=== PATIENT | male | born 1970 | race Caucasian/White ===

== ENCOUNTER 2016-12-03 08:02 | Day surgery (SDC) | payer OTHER ==
[2016-11-19 11:36] LABS: HEMATOCRIT 49.3 % (37.9-51.0); HGB HCT DIFFERENCE 1.7; MEAN CORPUSCULAR HEMOGLOBIN 32.6 pg (27.0-33.4); MEAN CORPUSCULAR HGB CONC 34.6 g/dL (32.0-36.0); MEAN CORPUSCULAR VOLUME 94 fl (80-97); RED BLOOD COUNT 5.24 10^6/uL (4.35-5.55); RED CELL DISTRIBUTION WIDTH 13.5 % (11.5-14.0); WHITE BLOOD COUNT 10.7 10^3/uL (4.0-10.5)
[2016-11-19 11:37] LABS: APPEARANCE,URINE SLIGHTLY-CLOUDY; BILIRUBIN,URINE NEGATIVE (NEGATIVE); GLUCOSE, URINE NEGATIVE (NEGATIVE); KETONES,URINE NEGATIVE (NEGATIVE); LEUKOCYTE ESTERASE,URINE NEGATIVE (NEGATIVE); NITRITE,URINE NEGATIVE (NEGATIVE); PROTEIN,URINE NEGATIVE (NEGATIVE); URINE SPECIFIC GRAVITY 1.019; UROBILINOGEN,URINE NEGATIVE mg/dL (<2.0)
[2016-11-19 11:58] LABS: ANION GAP 12 (5-19); BLOOD UREA NITROGEN 9 mg/dL (7-20); CALCIUM 10.1 mg/dL (8.4-10.2); CARBON DIOXIDE 25 mmol/L (22-30); CHLORIDE 105 mmol/L (98-107); CREATININE RESULT 0.81 mg/dL (0.52-1.25); GLUCOSE 141 mg/dL (75-110); POTASSIUM 4.2 mmol/L (3.6-5.0); SODIUM 142.3 mmol/L (137-145)
--- NOTE | 2016-11-19 14:42 | EKG REPORT ---
SEVERITY:- ABNORMAL ECG - SINUS RHYTHM LEFT POSTERIOR FASCICULAR BLOCK : Confirmed by: Rajesh King 19-Nov-2016 14:41:11
[~2016-12-03 08:02] MED LIST: CEFAZOLIN 1 GM/D5W RTU 1 GM/50 ML RTUPB IV PRN; CEFAZOLIN 2 GM/D5W RTU 2 GM/50 ML RTUPB IV PRN; CLINDAMYCIN 600 MG/D5W RTU 600 MG/50 ML RTUPB IV PRN; LACTATED RINGERS 1000 ML IV PRN
[2016-12-03] MEDS ORDERED: FENTANYL CITRATE INJ/PF 250 MCG/5 ML AMPULE ONE ×2 (10:10→10:32)
[2016-12-03] MEDS ORDERED: EPHEDRINE SULFATE INJ 50 MG/1 ML AMPULE ONE (10:11)
[2016-12-03] MEDS ORDERED: HYDROMORPHONE HCL INJ/PF 2 MG/ML AMPULE ONE ×2 (10:11→10:32)
[2016-12-03] MEDS ORDERED: MIDAZOLAM 2 MG/2 ML INJ ONE (10:11)
[2016-12-03] MEDS ORDERED: PROPOFOL INJ 200 MG/20 ML VIAL IV ONE (10:11)
[2016-12-03] MEDS ORDERED: ACETAMINOPHEN 100 ML IV ONE (10:11)
[2016-12-03] MEDS ORDERED: ALBUTEROL SULFATE 0.083% NEB 2.5 MG/3 ML AMPUL NEB ONE (10:18)
[2016-12-03] MEDS ORDERED: MORPHINE SULFATE 10 MG/ML INJ IV PRN (11:05)
[2016-12-03] MEDS ORDERED: FENTANYL CITRATE INJ/PF 100 MCG/2 ML AMPUL IV PRN ×3 (11:05)
[2016-12-03] MEDS ORDERED: MEPERIDINE HCL/PF INJ 25 MG/1 ML DISP.SYRIN IV PRN (11:05)
[2016-12-03] MEDS ORDERED: OXYCODONE-ACETAMINOPHEN 5-325 MG TABLET PO PRN ×2 (11:05)
[2016-12-03] MEDS ORDERED: DIPHENHYDRAMINE HCL 50 MG/ML VIAL IV PRN (11:05)
[2016-12-03] MEDS ORDERED: PROMETHAZINE HCL INJ 25 MG/1 ML VIAL IV PRN ×2 (11:05)
[2016-12-03] MEDS ORDERED: BUPIVACAINE HCL 0.25% /EPINEPHRINE INJ/PF 30 ML SDV ONE (11:52)
--- NOTE | 2016-12-03 12:10 | Operative Report ---
Operative Report DATE OF SURGERY: 12/03/16 PREOPERATIVE DIAGNOSIS: Right talar avascular necrosis OPERATION: Right pantalar arthrodesis SURGEON: KIM CRAVEN ANESTHESIA: GA TISSUE REMOVED OR ALTERED: Bone to pathology COMPLICATIONS: Drill fracture ESTIMATED BLOOD LOSS: 50 mL PROCEDURE: The patient supine after table the right lower extremity is prepped and draped in a sterile fashion. The limb was elevated for exsanguination tourniquet inflated to 350 torr. A longitudinal incision was made over the distal fibula. The distal fibula was exposed. It's transected using an oblique osteotomy from proximal distal. The distal fibular fragment is then excised revealing the underlying tibiotalar joint. There resection was planned of both proximal talus and the distal tibia. The plan is for neutral varus valgus angle, neutral rotation, and 5 of plantar flexion. With this in mind, the proximal surface of the talus is resected. The distal aspect of the tibia is resected. The alignment was assessed and felt to be reasonable. Subsequent pin is then placed from the plantar aspect of the foot up through the talus and into the distal tibia. A combined reamers used to increase the size of this. Access hole. Flexible reamers were then used to ream the nail tract to 10.5 mm. Subsequently a [employer] 10 mm titanium 150 mm ankle arthrodesis nail is advanced retrograde up into the tibia. A screw was placed across the talus. 2 screws were then placed more proximally in the tibial diaphysis. The tibiotalar space was then packed with bone graft obtained from the resected specimens as well as Vitoss bone substitute. The compression screws then activated from below to compress the tibiotalar joint. The next stage is to place a posterior calcaneal screw through the nail. In attempting to do this. The drill fractures and a fracture portion was left in the calcaneus. My clinical impression is that to remove this broken drill would cause much more distraction and leaving it in its current position. At this point the tourniquet was deflated. Hemostasis obtained with electrocautery. The wound is irrigated with bulb lavage. It's closed using interrupted Vicryl followed by kelly. A sterile compressive dressing and posterior plaster splint were applied and the patient's returned to recovery room in satisfactory condition.
[2016-12-03] MEDS ORDERED: ONDANSETRON HCL INJ/PF 4 MG/2 ML SDV IV PRN (12:17)
[2016-12-03] MEDS ORDERED: OXYCODONE HCL IR 5 MG TABLET PO PRN (12:17)
[2016-12-03] MEDS: FENTANYL CITRATE INJ/PF 100 MCG/2 ML AMPUL ONE ×2 (12:28→12:37)
[2016-12-03] MEDS ORDERED: GLYCOPYRROLATE INJ 0.4 MG/2 ML VIAL ONE (13:10)
[2016-12-03] MEDS ORDERED: DEXAMETHASONE SOD PHOSPHATE INJ 4 MG/1 ML VIAL ONE (13:10)
[2016-12-03] MEDS ORDERED: SUCCINYLCHOLINE CHLORIDE INJ 200 MG/10 ML VIAL ONE (13:10)
[2016-12-03] MEDS ORDERED: ONDANSETRON HCL INJ/PF 4 MG/2 ML SDV ONE (13:10)
[2016-12-03 14:22] VITALS: BP 160/98
== END 2016-12-03 14:10 | disposition home or self-care (01) ==
LOC: OROUT 08:02
PROVIDERS: ATTEND Orthopaedic Surgery
PROC: 0SGF04Z Fusion of Right Ankle Joint with Internal Fixation Device, Open Approach (ICD-10-PCS; 2016-12-03)
PROC: 0SGF07Z Fusion of Right Ankle Joint with Autologous Tissue Substitute, Open Approach (ICD-10-PCS; principal; 2016-12-03 10:00)
DX: M87.074 Idiopathic aseptic necrosis of right foot (principal); J44.9 Chronic obstructive pulmonary disease, unspecified; F17.210 Nicotine dependence, cigarettes, uncomplicated; Z88.0 Allergy status to penicillin; M19.90 Unspecified osteoarthritis, unspecified site; I10 Essential (primary) hypertension; E78.00 Pure hypercholesterolemia, unspecified; Z79.899 Other long term (current) drug therapy; Z79.51 Long term (current) use of inhaled steroids; F31.9 Bipolar disorder, unspecified
CPT/HCPCS: 93005; 36415; 85027; 80048; 81001; 73600; 71020; 93010; 28705; J2250; J3490; J1100; J3010 ×2; J1170; J0330; J2405; J2704; J0131; 01480

== ENCOUNTER 2017-01-22 17:38 | Emergency (ER) | payer OTHER ==
--- NOTE | 2017-01-22 20:23 | ER Document Report ---
ED Medical Screen (RME) - General Chief Complaint: Ankle Pain Stated Complaint: ANKLE PAIN Time Seen by Provider: 01/22/17 20:17 Notes: Patient had a fusion of his right ankle by Dr. Tang on December 03. He had a cast on postop that was removed by Dr. Tang in the follow-up visit at 2 weeks postop. That is the only time he says that he has seen and been able to talk with Dr. Tang. He says he has an appointment to see him on January [address] Tang has declined to change any of the treatment plan and says that the ankle is not infected and does not need anything else done for it until he sees him on January 28. Patient says he has only had conversations with Dr. Tang's nurse over the past 5 weeks.. Patient is not aware of any fever, but is having hot flashes. He says that he is having yellow drainage out of the incision over the lateral aspect of the ankle. He also says there is a drillbit coming out of his lower mid right lower leg. And, he is unable to bear weight on that ankle at this time because of continuing pain. He has asked Dr. Fuentes only for a referral for a second opinion and was given in order to get a second opinion, but the patient has not been able to do that yet. He says that he went to the doctor at the [facility] today and was told that he needed to be seen because of all the problems and concerns that he has with the ankle. Patient seems very angry. Says he is under care for posttraumatic stress disorder, depression, homicidal ideations, and suicidal ideation TRAVEL OUTSIDE OF THE [place] IN LAST 30 DAYS: No - Related Data Allergies/Adverse Reactions: shellfish derived Allergy (Verified 01/22/17 17:44) Anaphylaxis ALL CILLINS Allergy (Uncoded 01/22/17 17:44) Anaphylaxis BEE STINGS Allergy (Uncoded 01/22/17 17:44) Anaphylaxis Past Medical History - Past Medical History Cardiac Medical History: Reports: Hx Hypertension Denies: Hx Coronary Artery Disease, Hx Heart Attack Pulmonary Medical History: Reports: Hx Asthma, Hx Bronchitis, Hx COPD, Hx Pneumonia Neurological Medical History: Denies: Hx Cerebrovascular Accident, Hx Seizures Renal/ Medical History: Denies: Hx Peritoneal Dialysis Musculoskeltal Medical History: Reports Hx Arthritis - Immunizations Hx Diphtheria, Pertussis, Tetanus Vaccination: - UNKNOWN Physical Exam - Vital signs Vitals: Temp Pulse Resp BP Pulse Ox 97.8 F 94 18 112/93 H 97 01/22/17 17:44 01/22/17 17:44 01/22/17 17:44 01/22/17 17:44 01/22/17 17:44 Course - Vital Signs Vital signs: Temp Pulse Resp BP Pulse Ox 97.8 F 94 18 112/93 H 97 01/22/17 17:44 01/22/17 17:44 01/22/17 17:44 01/22/17 17:44 01/22/17 17:44
[2017-01-22 20:53] LABS: ABSOLUTE BASOPHILS # (AUTO) 0.1 10^3/uL (0.0-0.2); ABSOLUTE EOSINOPHILS # (AUTO) 0.2 10^3/uL (0.0-0.6); ABSOLUTE LYMPHOCYTES (AUTO) 3.7 10^3/uL (0.5-4.7); ABSOLUTE MONOCYTES (AUTO) 0.7 10^3/uL (0.1-1.4); ABSOLUTE NEUT (AUTO) 5.8 10^3/uL (1.7-8.2); BASOPHILS % (AUTO) 0.5 % (0-2); EOSINOPHILS % (AUTO) 2.1 % (0-6); HEMATOCRIT 49.2 % (37.9-51.0); HEMOGLOBIN 16.7 g/dL (13.5-17.0); HGB HCT DIFFERENCE 0.9; LYMPHOCYTES % (AUTO) 35.1 % (13-45); MEAN CORPUSCULAR HEMOGLOBIN 32.3 pg (27.0-33.4); MEAN CORPUSCULAR HGB CONC 33.9 g/dL (32.0-36.0); MEAN CORPUSCULAR VOLUME 96 fl (80-97); MONOCYTES % (AUTO) 6.9 % (3-13); RED BLOOD COUNT 5.15 10^6/uL (4.35-5.55); RED CELL DISTRIBUTION WIDTH 13.2 % (11.5-14.0); SEGMENTED NEUTROPHILS % (AUTO) 55.4 % (42-78); WHITE BLOOD COUNT 10.5 10^3/uL (4.0-10.5)
--- NOTE | 2017-01-22 20:56 | RADIOLOGY REPORT (SQ) ---
EXAM DESCRIPTION: ANKLE RIGHT COMPLETE COMPLETED DATE/TIME: 01/22/2017 8:45 pm REASON FOR STUDY: Red and swelling right ankle, postop 6 weeks COMPARISON: Intraoperative films dated 12/03/2016 NUMBER OF VIEWS: Three views. TECHNIQUE: AP, lateral, and oblique radiographic images acquired of the right ankle. LIMITATIONS: None. FINDINGS: MINERALIZATION: Normal. BONES: No acute fracture or dislocation. Postsurgical changes are identified with orthopedic hardwar e extending from the level of the distal tibia to the level of the calcaneus. There is amputation of the distal fibula. Periosteal reaction is identified. JOINTS: No effusions. SOFT TISSUES: Soft tissue swelling is identified. OTHER: No other significant finding. IMPRESSION: Postsurgical changes as noted above. There is soft tissue swelling. No acute fracture dislocation is seen. TECHNICAL DOCUMENTATION: JOB ID: [id number] [employer]- All Rights Reserved
[2017-01-22 21:21] LABS: ALANINE AMINOTRANSFERASE 33 U/L (21-72); ALBUMIN 4.6 g/dL (3.5-5.0); ALKALINE PHOSPHATASE 74 U/L (38-126); ANION GAP 15 (5-19); ASPARTATE AMINO TRANSFERASE 24 U/L (17-59); BILIRUBIN,DIRECT 0.3 mg/dL (0.0-0.4); BILIRUBIN,TOTAL 0.5 mg/dL (0.2-1.3); BLOOD UREA NITROGEN 12 mg/dL (7-20); CALCIUM 10.3 mg/dL (8.4-10.2); CARBON DIOXIDE 23 mmol/L (22-30); CHLORIDE 105 mmol/L (98-107); CREATININE RESULT 0.92 mg/dL (0.52-1.25); GLUCOSE 127 mg/dL (75-110); POTASSIUM 4.4 mmol/L (3.6-5.0); SODIUM 143.3 mmol/L (137-145); TOTAL PROTEIN 7.7 g/dL (6.3-8.2)
[2017-01-22] MEDS ORDERED: CLINDAMYCIN HCL 150 MG CAPSULE PO ONE (22:17)
--- NOTE | 2017-01-22 22:26 | ER Document Report ---
ED General - General Chief Complaint: Ankle Pain Stated Complaint: ANKLE PAIN Time Seen by Provider: 01/22/17 20:17 Mode of Arrival: Ambulatory Information source: Patient TRAVEL OUTSIDE OF THE [place] IN LAST 30 DAYS: No - HPI Notes: Patient is a 47-year-old white male status post right ankle fusion for idiopathic right talar avascular necrosis on 12/03/16 presents emergency department with report of continued pain and drainage from a lateral wound incision. The patient states the wound has closed somewhat but still has an approximately 1.2 cm opening that is draining serous fluid. He reports occasional night sweats, but denies any fever. He has been performing his own wound care to the area and is taking care not to aggressively clean it. The patient reports no chest pain or shortness of breath. The patient has been cleaning the wound regularly with 80% hydrogen peroxide, and he was told to use only 10% hydrogen peroxide mixed with water so as not to burn the edges of the tissue so that they may heal better. Patient has a follow-up on January [address] Jimenez who performed the surgery - Related Data Allergies/Adverse Reactions: shellfish derived Allergy (Verified 01/22/17 17:44) Anaphylaxis ALL CILLINS Allergy (Uncoded 01/22/17 17:44) Anaphylaxis BEE STINGS Allergy (Uncoded 01/22/17 17:44) Anaphylaxis Past Medical History - Social History Smoking Status: Current Every Day Smoker Chew tobacco use (# tins/day): No Frequency of alcohol use: None Drug Abuse: None Lives with: Alone Family History: Reviewed & Not Pertinent Patient has suicidal ideation: No Patient has homicidal ideation: No - Past Medical History Cardiac Medical History: Reports: Hx Hypertension Denies: Hx Coronary Artery Disease, Hx Heart Attack Pulmonary Medical History: Reports: Hx Asthma, Hx Bronchitis, Hx COPD, Hx Pneumonia Neurological Medical History: Denies: Hx Cerebrovascular Accident, Hx Seizures Renal/ Medical History: Denies: Hx Peritoneal Dialysis Musculoskeltal Medical History: Reports Hx Arthritis Past Surgical History: Reports: Hx Orthopedic Surgery - Immunizations Hx Diphtheria, Pertussis, Tetanus Vaccination: Yes - UNKNOWN Hx Pneumococcal Vaccination: 11/22/14 Review of Systems - Review of Systems Notes: REVIEW OF SYSTEMS: CONSTITUTIONAL : Denies fever. EENT: Denies eye, ear, throat, or mouth pain or symptoms. Denies nasal or sinus congestion or discharge. Denies throat, tongue, or mouth swelling or difficulty swallowing. CARDIOVASCULAR: Denies chest pain. Denies palpitations or racing or irregular heart beat. Denies ankle edema. RESPIRATORY: Denies cough, cold, or chest congestion. Denies shortness of breath, difficulty breathing, or wheezing. GASTROINTESTINAL: Denies abdominal pain or distention. Denies nausea, vomiting , or diarrhea. Denies blood in vomitus, stools, or per rectum. Denies black, tarry stools. Denies constipation. GENITOURINARY: Denies difficulty urinating, painful urination, burning, frequency, blood in urine, or discharge. MUSCULOSKELETAL: Denies back or neck pain or stiffness. Reports joint pain to the right ankle. SKIN: Denies rash. HEMATOLOGIC : Denies easy bruising or bleeding. LYMPHATIC: Denies swollen, enlarged glands. NEUROLOGICAL: Denies confusion or altered mental status. Denies passing out or loss of consciousness. Denies dizziness or lightheadedness. Denies headache. Denies weakness or paralysis or loss of use of either side. Denies problems with gait or speech. Denies sensory loss, numbness, or tingling. Denies seizures. PSYCHIATRIC: Denies anxiety or stress. Denies depression, suicidal ideation, or homicidal ideation. ALL OTHER SYSTEMS REVIEWED AND NEGATIVE. Dictation was performed using [employer] voice recognition software Physical Exam - Vital signs Vitals: Temp Pulse Resp BP Pulse Ox 97.8 F 94 18 112/93 H 97 01/22/17 17:44 01/22/17 17:44 01/22/17 17:44 01/22/17 17:44 01/22/17 17:44 - Notes Notes: PHYSICAL EXAMINATION: GENERAL: Well-appearing, well-nourished and in no acute distress. HEAD: Atraumatic, normocephalic. EYES: Pupils equal round and reactive to light, extraocular movements intact, sclera anicteric, conjunctiva are normal. ENT: Nares patent, oropharynx clear without exudates. Moist mucous membranes. NECK: Normal range of motion, supple without lymphadenopathy LUNGS: Breath sounds clear to auscultation bilaterally and equal. No wheezes rales or rhonchi. HEART: Regular rate and rhythm without murmurs ABDOMEN: Soft, nontender, nondistended abdomen. No guarding, no rebound. No masses appreciated. Musculoskeletal: no pitting or edema. No cyanosis. Pain appreciated right ankle where there is postsurgical changes noted, but no obvious cellulitis or evidence for abscess. Most of the surgical sites are healed with the exception of lateral lower surgical site which has a 1 cm opening to the wound that shows no significant purulent drainage and no obvious cellulitis. There is minimal serous drainage noted which is sent for culture. No proximal erythema or adenopathy. No palpable cord. Patient does have some range of motion to the ankle and has good distal pulses and capillary refill. NEUROLOGICAL: Cranial nerves grossly intact. Normal speech, normal gait. Normal sensory, motor exams PSYCH: Normal mood, normal affect. SKIN: Warm, Dry, normal turgor, no rashes or lesions noted. Course - Re-evaluation Re-evalutation: 01/22/17 22:28 Patient was counseled at length about the need to quit smoking to help his wounds heal and to help with the process of his bones healing. The patient has a normal CBC and is afebrile and shows no obvious signs for osteomyelitis on x- ray. Patient will be started on clindamycin to expand antibiotic coverage pending results of his culture of the wound. - Vital Signs Vital signs: Temp Pulse Resp BP Pulse Ox 97.8 F 87 18 127/76 H 97 01/22/17 21:10 01/22/17 21:10 01/22/17 21:10 01/22/17 21:10 01/22/17 21:10 - Laboratory Result Diagrams: 01/22/17 20:30 01/22/17 20:30 Laboratory results interpreted by me: 01/22/17 20:30 Glucose 127 H Calcium 10.3 H Discharge - Discharge Clinical Impression: Wound dehiscence Condition: Stable Disposition: HOME, SELF-CARE Instructions: Stop Smoking ([facility]), Delayed Wound Closure ([facility]) Additional Instructions: Keep the wound clean and dry. Use only 10% hydrogen peroxide mixed with water to clean the wound. Return to the ED in case of fever or worsening redness or swelling or foul- smelling drainage. Prescriptions: Clindamycin HCl [Cleocin 300 mg Capsule] 300 mg PO TID #30 capsule
[2017-01-22 23:07] VITALS: BP 122/85
== END 2017-01-22 23:03 | disposition home or self-care (01) ==
LOC: ER 17:38
DX: T81.30XA Disruption of wound, unspecified, initial encounter (principal); F17.200 Nicotine dependence, unspecified, uncomplicated; I10 Essential (primary) hypertension; J44.9 Chronic obstructive pulmonary disease, unspecified; J45.909 Unspecified asthma, uncomplicated; Z91.030 Bee allergy status; Z91.013 Allergy to seafood
CPT/HCPCS: 36415; 80053; 85025; 87070; 87077; 87186; 87205; 99283

== ENCOUNTER 2017-08-09 01:22 | Emergency (ER) | payer OTHER ==
[2017-08-09 01:30] VITALS: BP 150/85
--- NOTE | 2017-08-09 01:47 | ER Document Report ---
HPI - HPI Patient complains to provider of: Medial right ankle pain and swelling Onset: Yesterday - 5 pm Onset/Duration: Sudden Pain Level: 5 Context: 47-year-old status post right ankle surgery Dr. Craven in November due to rt talar avascular necrosis got out of bed yesterday at 5 PM and felt a pop and pain with subsequent swelling to his medial right ankle. Associated Symptoms: None Exacerbated by: Walking Relieved by: Denies Similar symptoms previously: No Recently seen / treated by doctor: No - ROS ROS below otherwise negative: Yes Systems Reviewed and Negative: Yes All other systems reviewed and negative - MUSCULOSKELETAL Musculoskeletal: REPORTS: Extremity pain - right ankle Past Medical History - General Information source: Patient - He had it without a rash now - Social History Smoking Status: Current Every Day Smoker Frequency of alcohol use: None Drug Abuse: None Lives with: Family Family History: Reviewed & Not Pertinent Patient has suicidal ideation: No Patient has homicidal ideation: No - Past Medical History Cardiac Medical History: Reports: Hx Hypertension Pulmonary Medical History: Reports: Hx Asthma, Hx Bronchitis, Hx COPD, Hx Pneumonia Renal/ Medical History: Denies: Hx Peritoneal Dialysis Musculoskeltal Medical History: Reports Hx Arthritis Past Surgical History: Reports: Hx Orthopedic Surgery - right ankle sx - Immunizations Hx Diphtheria, Pertussis, Tetanus Vaccination: Yes - UNKNOWN Hx Pneumococcal Vaccination: 11/22/14 Vertical Provider Document - CONSTITUTIONAL Agree With Documented VS: Yes Exam Limitations: No Limitations General Appearance: No Apparent Distress - INFECTION CONTROL TRAVEL OUTSIDE OF THE [place] IN LAST 30 DAYS: No - HEENT HEENT: Normocephalic - NECK Neck: Supple - Patient is - RESPIRATORY O2 Sat by Pulse Oximetry: 99 - MUSCULOSKELETAL/EXTREMETIES Musculoskeletal/Extremeties: Tender - medial right foot inferior to malleolus with swelling, tender Notes: 2 + DP - NEURO Level of Consciousness: Awake, Alert Motor/Sensory: No Motor Deficit, No Sensory Deficit - DERM Integumentary: Warm, Dry, No Rash Course - Re-evaluation Re-evalutation: 08/09/17 02:46 X-rays are negative for acute injury there is postop changes. Patient does not want an Jin wrap or splint he states that any pressure on the arch of my foot causes extreme pain due to Dr. Craven screwing up my surgery, he says he has to go back and do surgery. He already uses crutches. - Vital Signs Vital signs: Temp Pulse Resp BP Pulse Ox 98.6 F 87 20 150/85 H 99 08/09/17 01:28 08/09/17 01:28 08/09/17 01:28 08/09/17 01:28 08/09/17 01:28 Discharge - Discharge Clinical Impression: right ankle sprain/swelling Condition: Good Disposition: HOME, SELF-CARE Instructions: Use of Crutches ([facility]), Sprained Ankle ([facility]) Additional Instructions: follow up with dr. crow lutz to reduce the swelling Referrals: MAGALYS GERARD DO [Primary Care Provider] - Follow up as needed KIM CRAVEN MD [ACTIVE STAFF] - Follow up as needed
--- NOTE | 2017-08-09 02:33 | RADIOLOGY REPORT (SQ) ---
EXAM DESCRIPTION: FOOT RIGHT COMPLETE CLINICAL HISTORY: 47 years, Male, ankle injury with pain COMPARISON: None. NUMBER OF VIEWS: 3 TECHNIQUE: Frontal, lateral, and oblique views of the right foot available. LIMITATIONS: None. FINDINGS: Intramedullary davidson and screw fixation of the ankle with fusion of the tibiotalar joint. Osteopenia. The tarsals and metatarsals are appropriately aligned. No acute fracture identified. IMPRESSION: No acute fracture identified. Postoperative change of the ankle. 2011 [employer]- All Rights Reserved
--- NOTE | 2017-08-09 02:35 | RADIOLOGY REPORT (SQ) ---
EXAM DESCRIPTION: ANKLE RIGHT COMPLETE CLINICAL HISTORY: injury COMPARISON: None. FINDINGS: 3 views of the right ankle. Postoperative change of the ankle with intramedullary davidson and screw fixation with fusion of the tibiotalar joint. Surgical resection of the distal fibula. Osteopenia. No definite acute fracture identified. IMPRESSION: 1. No acute fracture identified. Postoperative change.
== END 2017-08-09 02:46 | disposition home or self-care (01) ==
LOC: ER 01:22
DX: S93.401A Sprain of unspecified ligament of right ankle, initial encounter (principal); M25.571 Pain in right ankle and joints of right foot; M79.89 Other specified soft tissue disorders; X58.XXXA Exposure to other specified factors, initial encounter; F17.200 Nicotine dependence, unspecified, uncomplicated
CPT/HCPCS: 99283